=== PATIENT | male | born 1965 | race Caucasian/White ===

== ENCOUNTER → 2025-02-09 | Outpatient (CLI) | payer MEDICAID, SELFPAY ==
--- NOTE | 2025-02-09 13:48 | XR_ITS ---
Examination: Hand, left 3 views Technique: Hand AP, oblique, lateral 3 views Date and time of exam: February 09, 2025 1352 hours INDICATIONS: Onset hand pain beginning 3 weeks ago. FINDINGS: Moderate juxta-articular bone demineralization. No fracture or dislocation. No cortical bone destruction. Mild osteoarthritis distal interphalangeal joints second through fifth digits as well as first carpometacarpal joint No erosive arthritis IMPRESSION: No fracture Minor osteoarthritis
--- NOTE | 2025-02-09 13:48 | XR_ITS ---
Examination: Wrist, left 3 views Technique: Wrist AP, oblique, lateral 3 views Date and time of exam: February 09, 2025 at 1352 hours INDICATIONS: Wrist pain beginning 3 weeks ago. FINDINGS: No fracture or dislocation. Mild osteoarthritis radiocarpal and first carpometacarpal joints No avascular necrosis IMPRESSION: Mild osteoarthritis
== END | disposition home or self-care (01) ==
LOC: CDIM 13:40
PROVIDERS: PCP Internal Medicine
DX: M19.042 Primary osteoarthritis, left hand (principal); M19.032 Primary osteoarthritis, left wrist
CPT/HCPCS: 73110; 73130